=== PATIENT | female | born 1985 | race Caucasian/White ===

== ENCOUNTER → 2018-05-18 18:35 | Outpatient (CLI) | payer OTHER, SELFPAY ==
[2018-05-18 21:05] LABS: Chlamydia Trachomatis by PCR Negative (Negative); Neisserai gonorrhoeae by PCR Negative (Negative); Probe Check PASS; Sample Adequacy Control PASS; Specimen Processing Control PASS
[2018-05-24 09:03] LABS: HPV Reflexed? NOT INDICATED
== END ==
PROVIDERS: Visit Provider Obstetrics & Gynecology
DX: Z12.4 Encounter for screening for malignant neoplasm of cervix (principal); Z11.3 Encounter for screening for infections with a predominantly sexual mode of transmission
CPT/HCPCS: 87491; 87591; 88175; G0145

== ENCOUNTER → 2018-06-07 14:28 | Outpatient (CLI) | payer OTHER, SELFPAY ==
[2018-06-07 16:04] LABS: Absolute Neutrophil Count 4.4 X10^3/uL (2.0-7.7); Basophil# 0.02 X10^3/uL; Basophil% 0.3 % (0-1); Eosinophil# 0.06 X10^3/uL; Eosinophils% 0.9 % (0-5); Hematocrit 41.5 % (37-47); Hemoglobin 13.6 g/dl (12.0-15.0); Lymphocyte % 24.1 % (19-41); Mean Corp Hgb Conc 32.8 g/gl (32-36); Mean Corpuscular Hgb 29.9 pg (27.0-32.0); Mean Corpuscular Volume 91.2 fL (81-99); Monocyte# 0.62 X10^3/uL; Monocyte% 9.3 % (0-10); Neutrophil # 4.35 X10^3/uL (2.7-7.7); Neutrophil % 65.4 % (47-70); Platelet Count 201 K/mm3 (150-450); RBC Distribution Width CV 13.3 % (11.6-14.6); RBC Distribution Width SD 43.9 fl (35.1-43.9); Red Blood Count 4.55 M/mm3 (4.2-5.4); White Blood Count 6.7 K/mm3 (4.4-11.0)
[2018-06-07 16:16] LABS: POSITIVE COUNT NO; POSITIVE DIFFERENTIAL NO; POSITIVE MORPHOLOGY NO
[2018-06-07 16:35] LABS: Thyroid Stim Hormone (TSH) 0.06 uIU/mL (0.358-3.74)
[2018-06-07 16:48] LABS: Amphetamine Urine VISTA NEGATIVE (<1000 ng/mL); Barbiturate Urine VISTA NEGATIVE (< 200 ng/mL); Benzodiazepine Urine VISTA NEGATIVE (< 200 ng/mL); Cocaine Urine VISTA NEGATIVE (< 300 ng/mL); Ecstacy Urine VISTA NEGATIVE (< 500 ng/mL); Methadone Urine VISTA NEGATIVE (< 300 ng/mL); PCP Urine VISTA NEGATIVE (< 25 ng/mL); THC Urine VISTA NEGATIVE (< 50 ng/mL); Vista UDS pH Range 6
[2018-06-07 17:03] LABS: Color, Urine Straw (Yellow); Glucose, Dipstick Normal (Normal); Ketone-Dipstick Negative (Negative); Leukocyte Esterase-Dipstick Negative /ul (Negative); Nitrite-Dipstick Negative (Negative); Occult Blood-Urine Negative /ul (Negative); Protein-Dipstick Negative (Negative); Urine Bilirubin Dipstick Negative (Negative); Urine Clarity Clear (Clear); Urine Urobilinogen Normal (Normal)
[2018-06-07 18:03] LABS: COTININE Drug Screen Negative (<200 ng/mL)
[2018-06-08 09:15] LABS: HIV - WCH Non-Reactive (Nonreactive); Rubella IgG 124.6 IU/mL
[2018-06-08 10:25] LABS: Free T3 3.1 pg/mL (2.18-3.98); T4 Free Direct 1.12 ng/dL (0.76-1.46)
[2018-06-09 14:33] LABS: HEPATITIS B SURFACE AG Negative (Negative); Hep C Antibodies <0.1 s/co ratio (0.0-0.9)
[2018-06-10 01:02] LABS: Prenatal RPR NONREACTIVE (NONREACTIVE)
== END ==
PROVIDERS: Visit Provider Obstetrics & Gynecology
DX: Z34.81 Encounter for supervision of other normal pregnancy, first trimester (principal)
CPT/HCPCS: 36415; 80307; 81002; 84439; 84443; 84481; 85025; 86703; 86762; 86803; 87340

== ENCOUNTER → 2018-10-07 08:52 | Outpatient (CLI) | payer OTHER, SELFPAY ==
[2018-10-07 09:26] LABS: Hematocrit 33.6 % (37-47); Mean Corp Hgb Conc 32.7 g/gl (32-36); Mean Corpuscular Hgb 30.4 pg (27.0-32.0); Mean Corpuscular Volume 92.8 fL (81-99); Mean Platelet Vol. 10.6 fl (6.2-12.0); Platelet Count 153 K/mm3 (150-450); RBC Distribution Width CV 13.5 % (11.6-14.6); RBC Distribution Width SD 45.9 fl (35.1-43.9); Red Blood Count 3.62 M/mm3 (4.2-5.4); White Blood Count 6.5 K/mm3 (4.4-11.0)
[2018-10-07 09:28] LABS: Scan Indicated on CBC? Y/N NO
[2018-10-07 09:42] LABS: Glucose Challenge Gest 1H 50g 76 mg/dL (70-140)
--- OUTSIDE RECORDS SUMMARY | 2018-11-22 21:57 | XMS RPT_ITS ---
:1985 Author Organization OHIP Care Team Providers Name Role Phone Bruno Kruse Attending Unavailable Primay Care Physicia, No Primary Care Unavailable SealBruno phillips Attending Unavailable SealsBruno Referring Unavailable Primay Care Physicia, No Primary Care Unavailable SealBruno phillips Attending Unavailable PROBLEMS PROBLEMS DATE TYPE CONDITION / CODE ATTENDING STATUS SOURCE 10/07/2018 Unknown Z34.82 - Encounter Bruno Kruse Active [place] for supervision of Community other normal Hospital , second Repository trimester / Z34.82(ICD-10) 06/07/2018 Unknown Z34.81 - Encounter Bruno Kruse Active [place] for supervision of Community other normal Hospital , first Repository trimester / Z34.81(ICD-10) 05/19/2018 Unknown Z12.4 - Encounter Seals, Bruno Active [place] for screening for Community malignant neoplasm Hospital of cervix / Repository Z12.4(ICD-10) 05/19/2018 Unknown Z11.3 - Encounter Bruno Kruse Active [place] for screening for Community infections with a Hospital predominantly Repository sexual mode of transmission / Z11.3(ICD-10) PROCEDURES PROCEDURES No Procedure Records FoundRESULTS RESULTS CBC-COMPLETE BLOOD CNT Collected: 10/07/2018 Status: F Source: [place] NO DIFF 9:05 AM [facility] REPOSITORY TYPE CODE TESTS RESULT OUT OF RANGE REFERENCE UNITS LAB L100.1000 4.4-11.0 K/mm3 Normal WBC 6.5 LAB L100.1200 4.2-5.4 M/mm3 Low RBC 3.62 LAB L100.1300 12.0-15.0 g/dl Low HGB 11.0 LAB L100.1400 37-47 % Low HCT 33.6 LAB L100.1500 81-99 fL Normal MCV 92.8 LAB L100.1600 27.0-32.0 pg Normal MCH 30.4 LAB L100.1700 32-36 g/gl Normal MCHC 32.7 LAB L100.1810 11.6-14.6 % Normal RDW CV 13.5 LAB L100.1820 35.1-43.9 fl High RDW SD 45.9 LAB L100.1900 150-450 K/mm3 Normal PLT 153 LAB L100.2000 6.2-12.0 fl Normal MPV 10.6 Performed By: #### L100.0500 #### [facility] [address] [place], [place], [address] GLUCOSE CHALLENGE GEST Collected: 10/07/2018 Status: F Source: [place] 1H 50G 9:05 AM [facility] REPOSITORY TYPE CODE TESTS RESULT OUT OF RANGE REFERENCE UNITS LAB L501.0250 70-140 mg/dL Normal GLU GEST 76 50g 1H Performed By: #### L501.0250 #### [facility] [address] [place], [address] URINE DRUG SCREEN Collected: 06/07/2018 Status: F Source: [place] (VISTA) 2:32 PM [facility] REPOSITORY Order Comment: List of Drugs Taken or Suspected? UNK TYPE CODE TESTS RESULT OUT OF RANGE REFERENCE UNITS LAB L505.0075 TO BE Normal CONFIRMED Result Comment: CONFIRMATORY TESTING FOR ALL POSITIVE URINE DRUG SCREEN RESULTS WILL ONLY BE SENT OUT UPON PHYSICIAN ORDER. VISTA Urine Drug Screen methods provide only preliminary analytical test results. A more specific alternate chemical method must be used in order to obtain a confirmed analytical result. Gas chromatography/mass spectrometery (GC/MS) is the preferred confirmatory method. Clinical consideration and professional judgement should be applied to any drug of abuse test result, particularly when preliminary positive results are used. URINE TCA TESTING MUST BE ORDERED SEPARATELY. USE TEST MNEMONIC: [facility] LAB L505.5005 VISTA UDS PH 6 Normal LAB L505.5015 <1000 ng/mL AMPHETAMINES Normal NEGATIVE LAB L505.5025 < 200 ng/mL BARBITIURATES Normal NEGATIVE LAB L505.5035 < 200 ng/mL BENZODIAZIPINE Normal NEGATIVE LAB L505.5045 < 300 ng/mL COCAINE Normal NEGATIVE LAB L505.5055 < 500 ng/mL ECSTACY Normal NEGATIVE LAB L505.5065 < 300 ng/mL METHADONE Normal NEGATIVE LAB L505.5075 < 300 ng/mL OPIATES Normal NEGATIVE LAB L505.5085 < 25 ng/mL PCP Normal NEGATIVE LAB L505.5095 < 50 ng/mL THC Normal NEGATIVE Performed By: #### L505.5000, L505.6240 #### [facility] [address] [place], [address] NICOTINE URINE DRUG Collected: 06/07/2018 Status: F Source: [place] SCREEN 2:32 PM [facility] REPOSITORY Order Comment: List of Drugs Taken or Suspected? UNK TYPE CODE TESTS RESULT OUT OF RANGE REFERENCE UNITS LAB L505.6250 TO BE Normal CONFIRMED Result Comment: CONFIRMATORY TESTING FOR ALL POSITIVE URINE DRUG SCREEN RESULTS WILL ONLY BE SENT OUT UPON PHYSICIAN ORDER. The results of Urine Drug Screen methods provide only preliminary analytical test results. A more specific alternate chemical method must be used in order to obtain a confirmed analytical result. Gas chromatography/mass spectrometery (GC/MS) is the preferred confirmatory method. Clinical consideration and professional judgement should be applied to any drug of abuse test result, particularly when preliminary positive results are used. LAB L505.6270 <200 ng/mL Normal COT DRG Negative SCREEN Result Comment: Cotinine is the first-stage metabolite of Nicotine. Performed By: #### L505.5000, L505.6240 #### [facility] [address] [place], [place], [address] CBC W/DIFF, AUTOMATED Collected: 06/07/2018 Status: F Source: [place] 2:32 PM [facility] REPOSITORY TYPE CODE TESTS RESULT OUT OF RANGE REFERENCE UNITS LAB L100.1000 4.4-11.0 K/mm3 Normal WBC 6.7 LAB L100.1200 4.2-5.4 M/mm3 Normal RBC 4.55 LAB L100.1300 12.0-15.0 g/dl Normal HGB 13.6 LAB L100.1400 37-47 % Normal HCT 41.5 LAB L100.1500 81-99 fL Normal MCV 91.2 LAB L100.1600 27.0-32.0 pg Normal MCH 29.9 LAB L100.1700 32-36 g/gl Normal MCHC 32.8 LAB L100.1810 11.6-14.6 % Normal RDW CV 13.3 LAB L100.1820 35.1-43.9 fl Normal RDW SD 43.9 LAB L100.1900 150-450 K/mm3 Normal PLT 201 LAB L100.2000 6.2-12.0 fl Normal MPV 12.0 LAB L100.2100 47-70 % Normal NEUT% 65.4 LAB L100.2200 19-41 % Normal LY% 24.1 LAB L100.2300 0-10 % Normal MONO% 9.3 LAB L100.2400 0-5 % Normal EO% 0.9 LAB L100.2500 0-1 % Normal BASO% 0.3 LAB L100.2550 0.0-0.9 % Normal IM GRAN % 0.000 Result Comment: IG% - Immature Granulocytes (promyelocytes, myelocytes and metamyelocytes) > 1% indicates that a LEFT SHIFT is Present. LAB L100.2620 2.0-7.7 X10 3/uL Normal Absolute Neut 4.4 LAB L100.2720 0.83-4.51 X10 3/ul Normal Absolute Lymph 1.60 Performed By: #### L100.0100 #### [facility] [address] [place], [address] THYROID STIM HORMONE Collected: 06/07/2018 Status: F Source: [place] (TSH) 2:32 PM [facility] REPOSITORY Order Comment: PLEASE ADD TO BLOOD IN LAB FROM 06/07/18. RACK TG4 5 O TYPE CODE TESTS RESULT OUT OF RANGE REFERENCE UNITS LAB L501.9520 0.358-3.74 uIU/mL Low TSH 0.06 Performed By: #### L501.9520, L501.39207, L506.0400 #### [facility] [address] [place], [address] FREE T3 Collected: 06/07/2018 Status: F Source: [place] 2:32 PM [facility] REPOSITORY Order Comment: PLEASE ADD TO BLOOD IN LAB FROM 06/07/18. RACK TG4 5 O TYPE CODE TESTS RESULT OUT OF RANGE REFERENCE UNITS LAB L501.44333 2.18-3.98 pg/mL Normal FREE T3 3.1 Performed By: #### L501.9520, L501.38032, L506.0400 #### [facility] [address] [place], [address] T4 FREE DIRECT Collected: 06/07/2018 Status: F Source: [place] 2:32 PM [facility] REPOSITORY Order Comment: PLEASE ADD TO BLOOD IN LAB FROM 06/07/18. RACK TG4 5 O TYPE CODE TESTS RESULT OUT OF RANGE REFERENCE UNITS LAB L506.0400 0.76-1.46 ng/dL Normal T4 FREE 1.12 DIRECT Performed By: #### L501.9520, L501.28328, L506.0400 #### [facility] [address] [place], [address] URINALYSIS, ROUTINE Collected: 06/07/2018 Status: F Source: [place] (DIPSTICK) 2:32 PM [facility] REPOSITORY Order Comment: How was Urine Obtained? CLEAN CATCH TYPE CODE TESTS RESULT OUT OF RANGE REFERENCE UNITS LAB L400.3000 Yellow COLOR Normal Straw LAB L400.3050 Clear Normal CLARITY Clear LAB L400.3200 Normal mg/dl Normal GLUCOSE, UR Normal LAB L400.3300 Negative mg/dL Normal BILIRUBIN URINE Negative LAB L400.3400 Negative mg/dl Normal KETONE UR Negative LAB L400.3465 1.002-1.030 Normal SP.GR. DIPSTX 1.010 LAB L400.3550 5.0 - 8.0 pH UR Normal 6.0 LAB L400.3600 Negative mg/dl PROT Normal DIPSTX Negative LAB L400.3700 Normal mg/dl Normal UROBILI Normal LAB L400.3750 Negative Normal NITRITE UR Negative LAB L400.3780 Negative /ul Normal OCCULT BLOOD-UR Negative LAB L400.3800 Negative /ul LEUK Normal ESTERASE Negative Performed By: #### L400.2010 #### [facility] [address] [place], [place], [address] T AND S-NO Collected: 06/07/2018 Status: F Source: [place] CHARGE W/PNP 2:32 PM [facility] REPOSITORY Order Comment: Reason for Type AND Screen/Red Cells: Surgery? N TYPE CODE TESTS RESULT OUT OF RANGE REFERENCE UNITS LAB B10.0800 O Normal BLOOD POSITIVE TYPE GEL LAB B100.4050 Normal Ab SCREEN NEGATIVE GEL Performed By: #### B100.7550 #### [facility] [address] [place], [place], [address] RUBELLA IGG Collected: 06/07/2018 Status: F Source: [place] 2:32 PM [facility] REPOSITORY TYPE CODE TESTS RESULT OUT OF RANGE REFERENCE UNITS LAB L509.4000 IU/mL Normal Rubella IgG 124.6 Result Comment: Antibody results Interpretation of Immune Status < 5 IU/ml Presumed Non-immune 5 - < 10 IU/ml Equivocal > or = 10 IU/ml Presumed Immune Performed By: #### L509.4000, L3890.6005 #### [facility] [address] [facility] [place], [place], [address] HIV - WCH Collected: 06/07/2018 Status: F Source: [place] 2:32 PM [facility] REPOSITORY TYPE CODE TESTS RESULT OUT OF RANGE REFERENCE UNITS LAB L3890.6005 Nonreactive Normal HIV - W[facility] Non-Reactive Performed By: #### L509.4000, L3890.6005 #### [facility] [address] [facility] [facility] [place], [address] HEPATITIS B SURFACE Collected: 06/07/2018 Status: F Source: [place] AG 2:32 PM [facility] REPOSITORY TYPE CODE TESTS RESULT OUT OF RANGE REFERENCE UNITS LAB L3100.0400 Negative Normal HB Negative SURF AG Result Comment: Performed at: [address] [id number] Departmental Secretary: Po Mcmillan PhD, Phone: [phone] Performed By: #### L3100.0390, L3100.0625 #### [facility] (refer to report for specific site) refer to report for address and phone number HEPATITIS C ANTIBODIES Collected: 06/07/2018 Status: F Source: [place] 2:32 PM [facility] REPOSITORY TYPE CODE TESTS RESULT OUT OF RANGE REFERENCE UNITS LAB L3100.0650 0.0-0.9 s/co ratio Normal HEP C AB <0.1 Result Comment: Negative: < 0.8 Indeterminate: 0.8 - 0.9 Positive: > 0.9 The CDC recommends that a positive HCV antibody result be followed up with a HCV Nucleic Acid Amplification test (031043). Performed By: #### L3100.0390, L3100.0625 #### [facility] (refer to report for specific site) refer to report for address and phone number RPR Collected: 06/07/2018 Status: F Source: [place] 2:32 PM [facility] REPOSITORY TYPE CODE TESTS RESULT OUT OF REFERENCE UNITS RANGE LAB L700.5100 NONREACTIVE Normal RPR NONREACTIVE Performed By: #### L700.5100 #### [facility] [address] [facility] [facility] [place], [place], [id number] CT/NG WCH BY PCR Collected: 05/18/2018 Status: F Source: [place] 4:00 PM [facility] REPOSITORY TYPE CODE TESTS RESULT OUT OF RANGE REFERENCE UNITS LAB L8200.2100 Negative Normal Chlam Negative Trac PCR LAB L8200.2200 Negative Normal NG by Negative PCR Performed By: #### L8200.2000 #### [facility] [address] [facility] [place] [place], [address] PAP I-G W/RFX HRHPV Collected: 05/18/2018 Status: F Source: [place] 4:00 PM [facility] REPOSITORY Order Comment: CYTOLOGY INFORMATION: - CLINICAL INFORMATION: - DATE LMP/MENOPAUSE: LMP 04/06 - COLLECTION VIAL: Thin Prep Vial - INSURANCE HEALTHCARE CONSULTANT SOURCE: CERVICAL/ENDOCERVICAL - COLLECTION TECHNIQUE: BRUSH/SPATULA Specimen Comment: [id number] Specimen Comment: No. of containers..01 ThinPrep Vial TYPE CODE TESTS RESULT OUT OF RANGE REFERENCE UNITS LAB L7400.0800 . Normal DIAGN Comment Result Comment: NEGATIVE FOR INTRAEPITHELIAL LESION AND MALIGNANCY. LAB L7400.0900 . Normal ADEQ Comment Result Comment: Satisfactory for evaluation. Endocervical and/or squamous metaplastic cells (endocervical component) are present. LAB L7400.1400 . Normal PERFORM Comment Result Comment: Radha López, Moth Exterminator (ASCP) LAB L7400.2575 . Normal TEST METHOD Comment Result Comment: This liquid based ThinPrep(R) pap test was screened with the use of an image guided system. LAB L7400.2600 . Normal . COMM LAB L7400.2700 . Normal PAPSMR Comment Result Comment: The Pap smear is a screening test designed to aid in the detection of premalignant and malignant conditions of the uterine cervix. It is not a diagnostic procedure and should not be used as the sole means of detecting cervical cancer. Both false-positive and false-negative reports do occur. LAB L7400.2800 . Normal HPV RFLX Comment Result Comment: The HPV DNA reflex criteria were not met with this specimen result therefore, no HPV testing was performed. Performed at: - [facility] [id number] Departmental Secretary: Sue Rey MD, Phone: [phone] Performed By: #### L7400.0350 #### [facility] (refer to report for specific site) refer to report for address and phone number ALLERGIES ALLERGIES DATE TYPE / CODE NAME / CODE REACTION SEVERITY SOURCE 08/17/2016 Drug Penicillins/ does not Unknown [facility] Allergy/4160 [id number]([facility] [address](SNOMED XNORM) Repository CT) ENCOUNTERS ENCOUNTERS ADMIT/DISCHARGE ACCOUNT ADMITTING ENCOUNTER LOCATION SOURCE NUMBER CLASS 10/07/2018 [id number] Amb[place] [facility] ing:WOBLAB Repository 06/07/2018 [id number] Ambulatory [place] [facility] ing:WOBLAB Repository 05/18/2018 [id number] Ambulatory [place] [facility] ing:LABSPEC Repository PAYERS PAYERS ENCOUNTER GUARANTOR PAYER SUBSCRIBER SOURCE 10/07/2018 JOSE A Primary JOSE A [place] [id number] Insurance:MEDICAL BURDDOB: [address], Number: [place]ository [place] [address]Riq: [id number] Date:[id number]T) [address], [place] [address]GT: 10/07/2018 Secondary NOT GIVENUNK [place] Insurance:SELF PAY [facility] Number: Effective Repository Date:2018-10-07 06/07/2018 JOSE A Primary JOSE A [place] [id number] Insurance:MEDICAL BURDDOB: [address], Number: Repository [place] [id number]: [id number] Date:0521-29-86ZU [address] (BK) [address], [place] [address]XO: 06/07/2018 Secondary NOT GIVENUNK [place] Insurance:SELF PAY [facility] Number: Effective Repository Date:2018-06-07 05/18/2018 JOSE A Primary JOSE Tiburcio Higginbotham [id number] Insurance:MEDICAL BURDDOB: [address], Number: Repository [place] [address]Rsn: [id number] Date:[id number] [address]) [address], [place] [address]LO: 05/18/2018 Secondary NOT GIVENUNK [place] Insurance:SELF PAY [facility] Effective Repository Date:2018-05-18
== END ==
PROVIDERS: Visit Provider Obstetrics & Gynecology
DX: Z34.82 Encounter for supervision of other normal pregnancy, second trimester (principal)
CPT/HCPCS: 36415; 82950; 85027

== ENCOUNTER → 2018-12-13 18:48 | Outpatient (CLI) | payer OTHER, SELFPAY | PROVIDERS: Referring Provider Obstetrics & Gynecology; Visit Provider Obstetrics & Gynecology | DX: Z36.85 Encounter for antenatal screening for Streptococcus B (principal) | CPT/HCPCS: 87081 ==

== ENCOUNTER 2019-01-06 09:30 | Inpatient (IN) | payer OTHER, SELFPAY ==
[2019-01-06] VITALS (12 sets, daily range): BP systolic 103–114; BP diastolic 53–70; PULSE 65–94; RESP 16–20; TEMP 35.6–36.9; O2SAT 95–100; BMI 25.7
[2019-01-06] MEDS: Lactated Ringers 1,000 ML 100 ML IV ×2 (10:00→16:09)
[2019-01-06] MEDS: Lactated Ringers 1,000 ML 999 ML IV (10:00)
[2019-01-06 10:24] LABS: Absolute Lymphocyte Count 1.57 X10^3/ul (0.83-4.51); Absolute Neutrophil Count 6.4 X10^3/uL (2.0-7.7); Basophil# 0.02 X10^3/uL; Basophil% 0.2 % (0-1); Eosinophil# 0.04 X10^3/uL; Eosinophils% 0.5 % (0-5); Hematocrit 35.9 % (37-47); Hemoglobin 11.8 g/dl (12.0-15.0); Lymphocyte # 1.57 X10^3/ul (4.0); Lymphocyte % 18.4 % (19-41); Mean Corp Hgb Conc 32.9 g/gl (32-36); Mean Corpuscular Hgb 29.8 pg (27.0-32.0); Mean Corpuscular Volume 90.7 fL (81-99); Mean Platelet Vol. 10.5 fl (6.2-12.0); Monocyte% 5.9 % (0-10); Neutrophil # 6.35 X10^3/uL (2.7-7.7); Neutrophil % 74.5 % (47-70); POSITIVE COUNT NO; POSITIVE DIFFERENTIAL NO; POSITIVE MORPHOLOGY NO; Platelet Count 133 K/mm3 (150-450); RBC Distribution Width CV 14.5 % (11.6-14.6); RBC Distribution Width SD 47.4 fl (35.1-43.9); Red Blood Count 3.96 M/mm3 (4.2-5.4); White Blood Count 8.5 K/mm3 (4.4-11.0)
[2019-01-06 10:42] LABS: Prothrombin Time (Protime)PT. 12.5 SECONDS (11.7-14.9)
[2019-01-06 10:43] LABS: Partial Thromboplast Time 24.8 Seconds (24.1-36.2)
[2019-01-06] MEDS: Lactated Ringers 1,000 ML 150 ML IV (11:05)
[2019-01-06] MEDS: Sodium Citrate/Citric Acid 30 ML UDC PO (11:45)
[2019-01-06] MEDS: Cefazolin 2 GM in 0.9% Normal Saline 100 ML IV (11:45)
[2019-01-06] MEDS: Oxytocin 30 units/NS 500 ml 30 UNITS/500 ML IV.SOLN 167 UNITS IV (12:30)
--- NOTE | 2019-01-06 12:56 | PCM.OPRPT ---
Report of Operation Date of Procedure: 01/06/19 Pre-Operative Diagnosis: Previous Section Post-Operative Diagnosis: Orevious Section, Complete Breech Presentation Surgery/Procedure Performed:: Repeat Low Transverse Section Description of Surgical Findings:: Live female in complete breech presentation. Normal appearing placenta. Amniotic fluid clear. Apgars were 9/9. weight 0st47xr. Normal appearing uterus, ovaries, and fallopian tubes. Minimal pelvic and abdominal scarring. sour bleaching pleater: Kori Hamlin Type of Anesthesia:: Spinal Anesthesiologist: Yong Peña Special Medications: none Specimen's removed: Cord Blood Drains: Lagunas Estimated Blood Loss (mL): 500cc Fluids Replaced: 700cc LR Description of Procedure: Yolande was taken to the OR with IV running. She was given two grams of Ancef intravenously for surgical prophylaxis. Spinal anesthesia was then introduced without complication. SHe was then prepped and draped in the supine position with a leftward tilt. A lagunas catheter was placed. Here anesthesia was then checked and found to be adequate for surgery. A Pfannensteil skin incision was then made through the existing lower abdominal scar. The underlying subcutaneous tissue was then dissected down to the level of the fascia using sharp and blunt dissection. The fascia was then incised in the midline. The facial defect was then extended bilaterally with the Gaytan scissors. The upper portion of the fascial defect was then grasped with two Leatha clamps, elevated and the underlying rectus muscles were dissected off with sharp dissection. In a similar fashion the rectus muscles were dissected off the lower fascial defect. The rectus muscles were then in the midline, the peritoneum identified and entered sharply. The peritoneal defect was extended using blunt dissection. A bladder blade was the placed. The vesicouterine peritoneum was identified and entered sharply. A bladder flap was the created. The bladder blade was replaced. The lower uterine segment was then incised in a transverse fashion. Once the cavity was entered the uterine defect was extended using blunt retraction. The membranes were then ruptured with clear fluid noted. The baby was noted to be in complete breech presentation. The breech was then delivered and the baby delivered to the shoulders. The arms were then delivered one at a time. The head was delivered easily. The baby's nose and mouth were suctioned with a bulb suction. There was an active cry shortly after delivery. Delayed cord clamping was employed. The cord was then clamped and cut. The baby was handed to the waiting nurse for evaluation. The placenta was then delivered manually and the uterine cavity cleared of all clot and membranes. The uterus was then exteriorized. The uterine incision was repaired in two layers with #1 Vicryl. The posterior cul de sac and gutters were cleared of all clot and fluid. The uterus was returned to the abdomen. The uterine incision was reinspected and found to be hemostatic. The peritoneum was closed with a running stitch of 2-0 Vicryl. The Rectus muscles were reapproximated with 0-Vicryl. The fascia was closed with a running stitch of #1 Stratofix. The subcutaneous tissue was closed with 2-0 Vicryl. The skin was closed with a subcuticular stitch of 4-0 Monocryl. Sponge, lap, needle and instrument counts were correct. She was taken to her recovery room in stable condition. Grafts/Implants Used: none - Complications none - Admit VTE Documentation VTE Present on Admission: No VTE Mechan Device Prophylaxis: SCD's VTE Pharm Prophylaxis ordered?: No Delivery Classification: Scheduled Final SALEEM: 01/12/19 Final SALEEM Source: US <20 weeks Gestational age: 39 Weeks and 1 Days Indications for : Repeat Elective , Breech Description of Procedure: See operative note Amniotic Membrane Rupture Type: Artificial Amniotic Fluid Description: Clear Placenta Disposition: [facility] Specimen(s) sent to pathology: Cord blood Drain: Lagunas to straight drain Fluids Replaced: 700cc LR Cord Entanglement: None Cord Vessel Description: 3 Vessels Esitmated Blood Loss (ml): 500cc Gender: Female (1 minute): 9 (5 minute): 9 Delayed cord clamping: Yes Pre-op Antibiotic Given: Ancef 2 grams IV x1 Pt instructed on risks of surgery: Bleeding, Infection, Injury to surrounding structure(s) including bowel and bladder Complications: None - Admit VTE Documentation VTE Present on Admission: No VTE Mechan Device Prophylaxis: SCD's VTE Pharm Prophylaxis ordered?: No
--- NOTE | 2019-01-06 13:08 | DCINST_ITS ---
Discharge Diet: No Restrictions Discharge Activity: Return to Normal Activity, May Not Drive, May not drive while taking narcotic pain medications., May Shower Return to work on:: 03/08/19 May shower in (days): 0 May resume sexual activity in: 4-6 weeks Call your doctor if your incision/area has: Sudden Increased Bleeding, Increased Pain/ Swelling, Increased Redness, Foul Smelling Discharge, Swelling at the incision site Call your doctor if you observe: Fever of 101 or Higher, Inability to urinate, Inability to have a bowel movement, Using more than one pad per hour, Shortness of breath, Chest pain, Calf discomfort, Uncontrolled pain Remove Dressing in (days):: 3 Cleanse incision/area with: Soap & Water Additional Instructions: If you experience any of the following, contact your healthcare provider. * Bleeding that soaks a pad every hour for 2 hours * Fever 100.4 or higher * Unrelieved incision or abdominal pain * Swelling, redness, discharge or bleeding from your incision or episiotomy site * Your incision begins to separate * Problems urinating (including inability to urinate or burning while uri nating). * Visual changes * Severe headache * Flu-like symptoms * Pain or redness in one of both of your breasts * Pain, warmth, tenderness or swelling in your legs, especially the calf area * Frequent nausea and vomiting * Symptoms of depression or anxiety If you experience any of the following, call 911 or go to the nearest Emergency Room. * Chest pain * Problems breathing * Seizure activity * Partial or complete paralysis of a body part, slurred speech, weakness or drooping of the face, or a sudden inability to walk or hold your balance Allergies/Adverse Reactions: Allergies Penicillins Allergy (Verified 08/17/16 22:57) does not remember Medications to take at Discharge Ferrous Gluconate 325 mg PO DAILY 08/17/16 Pnv No.103/Folic/Om3s/Fish Oil [ Gummies] 1 each PO DAILY 08/17/16 Docusate Sodium [Colace] 100 mg PO BID PRN PRN #60 capsule 08/18/16 Oxycodone [Oxyir] 5 - 10 mg PO Q4H PRN PRN #30 tablet 08/18/16 Ibuprofen 600 mg PO 4X/DAY #30 tablet 08/21/16 Oxycodone [Oxyir] 5 - 10 mg PO Q4H PRN PRN #30 tablet 08/21/16 Ibuprofen 600 mg PO 4X/DAY #30 tab 01/06/19 Oxycodone [Oxyir] 5 mg PO Q4H PRN PRN 7 Days #20 tablet 01/06/19 Oxycodone [Oxyir] 5 mg PO Q6H PRN PRN 7 Days #20 tab 01/06/19 The following prescriptions were given: Oxycodone [Oxyir] 5 mg PO Q6H PRN PRN 7 Days #20 tab PRN Reason: strong pain Ibuprofen 600 mg PO 4X/DAY #30 tab Follow-Up: Call to make an appointment with your doctor for an incision check in 1-2 weeks. You will also need a 6 week post- follow up appointment. Test results from this visit will be discussed in further detail at your follow- up appointment, if applicable. Please Follow Up With: Bruno Kruse MD When: one week Primary Care Physician: Bruno Beckett MD [Primary Care Provider] - Proposed Discharge Date: 01/08/19
[2019-01-06] MEDS: HYDROmorphone 1 MG/ML Syringe IV ×2 (14:32→17:08)
[2019-01-06] MEDS: Acetaminophen 500 MG Tablet 1000 MG PO (16:06)
[2019-01-06] MEDS: 0.9% Saline Lock 10 ML Syringe IV ×2 (17:09→18:21)
[2019-01-06] MEDS: Ketorolac 30 MG/ML Syringe IV (18:21)
[2019-01-06] MEDS: Cefazolin 1 GM/50 ML BAG IV (20:00)
[2019-01-06] MEDS: oxyCODONE 5 MG Tablet PO ×2 (20:02→20:59)
[2019-01-07] VITALS: BP 103/60; PULSE 77; RESP 18; TEMP 36.9; O2SAT 97
[2019-01-07] MEDS: Lactated Ringers 1,000 ML 100 ML IV (02:26)
[2019-01-07] MEDS: oxyCODONE 5 MG Tablet PO ×4 (03:40→22:52)
[2019-01-07] MEDS: Cefazolin 1 GM/50 ML BAG IV (03:40)
[2019-01-07 03:44] VITALS: BP 110/62; PULSE 80; RESP 16; TEMP 36.7
[2019-01-07] MEDS: Ketorolac 30 MG/ML Syringe IV ×5 (05:51→23:47)
[2019-01-07 06:30] LABS: Hematocrit 30.8 % (37-47); Hemoglobin 9.7 g/dl (12.0-15.0); Mean Corp Hgb Conc 31.5 g/gl (32-36); Mean Corpuscular Hgb 29.4 pg (27.0-32.0); Mean Corpuscular Volume 93.3 fL (81-99); Mean Platelet Vol. 11.5 fl (6.2-12.0); Platelet Count 133 K/mm3 (150-450); RBC Distribution Width CV 14.4 % (11.6-14.6); RBC Distribution Width SD 46.7 fl (35.1-43.9); White Blood Count 13.7 K/mm3 (4.4-11.0)
[2019-01-07 06:33] LABS: Scan Indicated on CBC? Y/N NO
[2019-01-07 08:00] VITALS: BP 100/67; PULSE 74; TEMP 36.8
--- NOTE | 2019-01-07 08:56 | PCM.PN.OB ---
Subjective: Pain reasonably controlled with toradol and oxycodone. Breast feeding. Bleeding light. Tolerating PO. Objective: AFeb VSS Urine output adequate. Hgb appropriate POD#1. - Physical Exam General: Alert, Oriented x3, Cooperative, No apparent distress Lungs: Clear to auscultation, Normal air movement Cardiovascular: Regular rate, Regular Rhythm Abdomen: Soft, Non Tender, Non-Distended, - - Incision dressing dry Extremities: No edema Skin: No rashes Neurological: Neuro grossly intact Psych/Mental Status: Normal Affect Comment: Lochia light Vital Signs Temp Pulse Resp BP Pulse Ox 98.1 F 80 16 110/62 97 01/07/19 03:44 01/07/19 03:44 01/07/19 03:44 01/07/19 03:44 01/07/19 00:00 Oxygen Delivery Method Room Air Weight: 140 lb 10.479 oz Body Mass Index (BMI) 25.7 Intake and Output for Last 24 Hours 01/05/19 01/06/19 01/07/19 23:59 23:59 23:59 Intake Total 4169 / 4169 2009 Output Total 2150 / 2150 2400 / 2400 Balance 2018 -390 / -390 Laboratory Tests Past 24 Hrs 01/06/19 01/06/19 01/06/19 10:00 10:00 10:00 WBC 8.5 RBC 3.96 L Hgb 11.8 L Hct 35.9 L MCV 90.7 MCH 29.8 MCHC 32.9 RDW 14.5 RDW Differential 47.4 H Plt Count 133 L MPV 10.5 Immature Gran % (Auto) 0.500 Neut % (Auto) 74.5 H Lymph % (Auto) 18.4 L [place] % (Auto) 5.9 Eos % (Auto) 0.5 Baso % (Auto) 0.2 Absolute Neuts (auto) 6.4 Absolute Lymphs (auto) 1.57 Total Counted Not Reportable PT 12.5 INR 1.0 APTT 24.8 Blood Type O POSITIVE Antibody Screen NEGATIVE 01/07/19 05:45 WBC 13.7 H RBC 3.30 L Hgb 9.7 L Hct 30.8 L MCV 93.3 MCH 29.4 MCHC 31.5 L RDW 14.4 RDW Differential 46.7 H Plt Count 133 L MPV 11.5 Immature Gran % (Auto) Neut % (Auto) Lymph % (Auto) [place] % (Auto) Eos % (Auto) Baso % (Auto) Absolute Neuts (auto) Absolute Lymphs (auto) Total Counted PT INR APTT Blood Type Antibody Screen Medical Necessity - Tobacco Use Smoking Status: Never smoker Assessment/Plan Doing well on POD#1. Continue routine PO care. D/C lag[place] catheter later today.
[2019-01-07] MEDS: Ferrous Gluconate 324 MG Tablet PO (09:55)
[2019-01-07] MEDS: Senna/Docusate Sodium 1 Tablet PO (09:55)
--- NOTE | 2019-01-07 11:41 | NURSING ---
1030 Lopez discontinued for 800ml of clear light yellow urine, abdirizak well. IV converted to a saline loc, flushes easily. Up to the bathroom with assistance, fang care completed after instructions, demonstrates understanding. Warm towelettes provided for sponge bath, abdirizak well. States she feels good and requests to sit up in the chair. Baby and remain at bedside.
[2019-01-07 12:00] VITALS: BP 98/57; PULSE 78; RESP 16; TEMP 36.4
[2019-01-07] MEDS: Prenatal Vits Tablet 1 TABLET PO (12:14)
[2019-01-07] MEDS: 0.9% Saline Lock 10 ML Syringe IV ×4 (12:14→23:49)
--- NOTE | 2019-01-07 14:28 | NURSING ---
1400 Up to the bathroom, voids 200ml. Ronan well. Returns to sitting in the chair. States she feels good. Friends visiting.
[2019-01-07 20:10] VITALS: BP 109/71; PULSE 73; RESP 16; TEMP 36.6
[2019-01-08 02:10] VITALS: BP 99/61; PULSE 80; RESP 16; TEMP 37.4
--- NOTE | 2019-01-08 02:40 | NURSING ---
0210 room temp 76degrees tmp control turned down at pt request.
[2019-01-08] MEDS: Ketorolac 30 MG/ML Syringe IV (06:03)
[2019-01-08] MEDS: 0.9% Saline Lock 10 ML Syringe IV ×2 (06:03→06:07)
--- NOTE | 2019-01-08 08:44 | PCM.PN.OB ---
Subjective: No specific complaints today. Breast feeding. Bleeding light. Pain reasonably controlled. Objective: Afeb VSS - Physical Exam General: Alert, Oriented x3, Cooperative, No apparent distress Lungs: Clear to auscultation, Normal air movement Cardiovascular: Regular rate, Regular Rhythm Abdomen: Soft, Non Tender, Non-Distended, - - Incision dressing dry. Extremities: No edema Skin: No rashes Neurological: Neuro grossly intact Psych/Mental Status: Normal Affect Comment: Lochia light Vital Signs Temp Pulse Resp BP Pulse Ox 99.3 F H 80 16 99/61 97 01/08/19 02:10 01/08/19 02:10 01/08/19 02:10 01/08/19 02:10 01/07/19 00:00 Oxygen Delivery Method Room Air Weight: 140 lb 10.479 oz Body Mass Index (BMI) 25.7 Intake and Output for Last 24 Hours //01/07/10 01/ 23:59 23:59 23:59 Intake Total 4169 / 4169 2009 Output Total 2150 / 2150 2400 / 2400 Balance 2018 / 2018 -390 / -390 Medical Necessity - Tobacco Use Smoking Status: Never smoker Assessment/Plan Doing well on POD#2. Cleared for discharge home today. Home going instructions and warnings given.
--- NOTE | 2019-01-08 08:46 | PCM.DC.SUM ---
Discharge Date and Diagnosis Date of Admission: 01/06/19 Date of Discharge: 01/08/19 - Primary Discharge Diagnosis S/P repeat LTCS Hospital Course and Treatment Operations: - - repeat low transverse section Summary of Care Provided: The patient is a 33 year old F [admitted for scheduled repeat LTCS. This was performed without complication with delivery of a live female . Post operative course was unremarkable. She was discharged home on POD#2.] - Physical Exam Vital Signs Temp Pulse Resp BP Pulse Ox 99.3 F H 80 16 99/61 97 01/08/19 02:10 01/08/19 02:10 01/08/19 02:10 01/08/19 02:10 01/07/19 00:00 Oxygen Delivery Method Room Air Weight: 140 lb 10.479 oz Body Mass Index (BMI) 25.7 Intake and Output for Last 24 Hours 01/06/19 01/07/19 01/08/19 23:59 23:59 23:59 Intake Total 4169 / 4169 2009 Output Total 2150 / 2150 2400 / 2400 Balance 2018 -390 / -390 Discharge Diet: No Restrictions Discharge Activity: Return to Normal Activity, May Not Drive, May not drive while taking narcotic pain medications., May Shower Return to work on:: 03/08/19 May shower in (days): 0 May resume sexual activity in: 4-6 weeks Call your doctor if your incision/area has: Sudden Increased Bleeding, Increased Pain/ Swelling, Increased Redness, Foul Smelling Discharge, Swelling at the incision site Call your doctor if you observe: Fever of 101 or Higher, Inability to urinate, Inability to have a bowel movement, Using more than one pad per hour, Shortness of breath, Chest pain, Calf discomfort, Uncontrolled pain Remove Dressing in (days):: 3 Cleanse incision/area with: Soap & Water Home Medications: Medications to take at Discharge Ferrous Gluconate 325 mg PO DAILY 08/17/16 Pnv No.103/Folic/Om3s/Fish Oil [ Gummies] 1 each PO DAILY 08/17/16 Docusate Sodium [Colace] 100 mg PO BID PRN PRN #60 capsule 08/18/16 Oxycodone [Oxyir] 5 - 10 mg PO Q4H PRN PRN #30 tablet 08/18/16 Ibuprofen 600 mg PO 4X/DAY #30 tablet 08/21/16 Oxycodone [Oxyir] 5 - 10 mg PO Q4H PRN PRN #30 tablet 08/21/16 Ibuprofen 600 mg PO 4X/DAY #30 tab 01/06/19 Oxycodone [Oxyir] 5 mg PO Q4H PRN PRN 7 Days #20 tablet 01/06/19 Oxycodone [Oxyir] 5 mg PO Q6H PRN PRN 7 Days #20 tab 01/06/19 Following Prescrptions Were Given to Patient: Oxycodone [Oxyir] 5 mg PO Q6H PRN PRN 7 Days #20 tab PRN Reason: strong pain Ibuprofen 600 mg PO 4X/DAY #30 tab Other Amb Orders: Electric breast pump Location: None Selected Primary Care Physician: Bruno Beckett MD [Primary Care Provider] - Please Follow Up With: Bruno Kruse MD When: one week Disposition: Home Minutes spent on discharge:: 15 Patient Condition:: Good Medical Necessity - Tobacco Use Smoking Status: Never smoker Meaningful Use Info Meaningful Use Diagnoses (Choose all that apply): None applicable
[2019-01-08 09:15] VITALS: BP 101/64; PULSE 72; RESP 16; TEMP 36.5; O2SAT 97
[2019-01-08] MEDS: oxyCODONE 5 MG Tablet PO (10:14)
[2019-01-08] MEDS: Ferrous Gluconate 324 MG Tablet PO (10:14)
[2019-01-08] MEDS: Prenatal Vits Tablet 1 TABLET PO (10:14)
== END 2019-01-08 11:50 | disposition home or self-care (01) | DRG 788 ==
LOC: WP 09:31
PROVIDERS: Admitting Provider Obstetrics & Gynecology; Family Provider Family Medicine; PCP Family Medicine; Referring Provider Obstetrics & Gynecology; Visit Provider Obstetrics & Gynecology
PROC: 10D00Z1 Extraction of Products of Conception, Low, Open Approach (ICD-10-PCS; CPT 59514; principal; 2019-01-06 11:45)
DX: O32.1XX0 Maternal care for breech presentation, not applicable or unspecified (principal); O34.211 Maternal care for low transverse scar from previous cesarean delivery; Z3A.39 39 weeks gestation of pregnancy; Z37.0 Single live birth
CPT/HCPCS: 85025; 85027; 85610; 85730; 86850; 86900; 99218; J7120; 90686; A4216; G0378

== ENCOUNTER → 2021-09-29 16:54 | Outpatient (CLI) | payer OTHER, SELFPAY ==
[2021-10-03 16:12] LABS: HPV APTIMA, High Risk Negative (Negative)
== END ==
PROVIDERS: PCP Family Medicine; Visit Provider Student in an Organized Health Care Education/Training Program
DX: Z12.4 Encounter for screening for malignant neoplasm of cervix (principal)
CPT/HCPCS: 87624; 88175; G0145

== ENCOUNTER → 2025-02-21 | Outpatient (CLI) | payer OTHER, SELFPAY ==
[2025-02-21 15:41] LABS: Absolute Neutrophil Count 2.8 X10^3/uL (2.0-7.7); Basophil# 0.04 X10^3/uL; Basophil% 0.8 % (0-1); Eosinophil# 0.11 X10^3/uL; Eosinophils% 2.3 % (0-5); Hematocrit 35.7 % (37-47); Hemoglobin 11.9 g/dL (12.0-15.0); Lymphocyte % 33.5 % (19-41); Mean Corp Hgb Conc 33.3 g/dL (32-36); Mean Corpuscular Hgb 30.3 pg (27.0-32.0); Mean Corpuscular Volume 90.8 fL (81-99); Monocyte# 0.23 X10^3/uL; Monocyte% 4.8 % (0-10); NRBC Flagged by Analyzer 0 % (0-5); Neutrophil # 2.79 X10^3/uL (2.7-7.7); Neutrophil % 58.4 % (47-70); Platelet Count 221 K/mm3 (150-450); RBC Distribution Width CV 13.5 % (11.6-14.6); RBC Distribution Width SD 45.7 fl (35.1-43.9); Red Blood Count 3.93 M/mm3 (4.2-5.4); White Blood Count 4.8 K/mm3 (4.4-11.0)
[2025-02-21 16:38] LABS: Cholesterol 194 mg/dL (<=200); Glucose 81 mg/dL (70-99); High Density Lipoprotein 66 mg/dL; Low Density Lipoprotein Calc. 111 mg/dL; Triglycerides 89 mg/dL; Very Low Density Lipoprotein 18 mg/dL (5-40); cholesterol:hdl ratio screen 2.96
[2025-02-21 16:39] LABS: ALB/GLOB Ratio 1.4 RATIO (0.9-2.4); AST(SGOT) 17 U/L (<=31); Alanine Aminotransfer ALT/SGPT 13 U/L (<=34); Alkaline Phosphatase 52 U/L (35-104); Anion Gap 12 (5-15); BUN 12 mg/dL (4-19); BUN/Creat Ratio 11.3 RATIO (10-20); Calcium,Total 8.9 mg/dL (7.6-11.0); Carbon Dioxide 20.7 mmol/L (21.0-32.0); Chloride 105 mmol/L (98-108); Cholesterol 193 mg/dL (<=200); Creatinine, Serum 1.04 mg/dL (0.70-1.20); EST Glomerular Filtration Rate 71 (>60); Globulin 2.8 g/dL (2.2-4.2); Glucose 81 mg/dL (70-99); High Density Lipoprotein 66 mg/dL; Low Density Lipoprotein Calc. 109 mg/dL; Potassium 3.9 mmol/L (3.3-5.1); Protein, Total 6.8 g/dL (5.9-8.4); Sodium Level 137 mmol/L (133-145); Total Bilirubin 0.23 mg/dL (0.00-1.30); Triglycerides 90 mg/dL; Very Low Density Lipoprotein 18 mg/dL (5-40); cholesterol:hdl ratio screen 2.92
[2025-02-21 17:57] LABS: Thyroid Stim Hormone (TSH) 0.583 uIU/mL (0.300-4.200); Vitamin D,25 Hydroxy 59.2 ng/mL (30-100)
[2025-02-23 11:08] LABS: Thyroid Peroxidase AB 16 IU/mL (0-34)
== END | disposition home or self-care (01) ==
LOC: MFPLAB 12:09
PROVIDERS: Nurse Practitioner Women's Health; Referring Provider Family Medicine; Visit Provider Family Medicine
DX: Z00.00 Encounter for general adult medical examination without abnormal findings (principal); Z13.1 Encounter for screening for diabetes mellitus; Z13.29 Encounter for screening for other suspected endocrine disorder; D50.9 Iron deficiency anemia, unspecified; Z13.220 Encounter for screening for lipoid disorders
CPT/HCPCS: 36415; 80053; 80061; 82306; 82533; 82947; 84439; 84443; 85025; 86376